=== PATIENT | male | born 1985 | race Caucasian/White ===

== ENCOUNTER → 2017-07-08 | Outpatient (CLI) | payer BC ==
--- NOTE | 2017-07-08 12:48 | DIAGNOSTIC IMAGING REPORT ---
L-SPINE MIN 4 VIEWS ROUTINE CLINICAL HISTORY: M54.5 Chronic lower back [id number] COMPARISON STUDY: No previous studies for comparison. FINDINGS: There are no acute fractures. There is a grade 1 spondylolisthesis of L5 on S1. There are bilateral L5 pars defects. IMPRESSION: 1. Bilateral L5 spondylolysis 2. Grade 1 spondylolisthesis of L5 on S1 3. No acute fractures Electronically signed by: Pranav Chauhan M.D. 07/08/2017 12:47 PM Dictated Date/Time: 07/08/2017 12:46 PM
== END ==
LOC: C.RAD 12:23
PROVIDERS: ATTEND Physician Assistant
DX: M43.16 Spondylolisthesis, lumbar region (principal)

== ENCOUNTER 2017-08-10 00:34 | Emergency (ER) | payer BC ==
[~2017-08-10] VITALS: Ht 175.3 cm; Wt 101.6 kg
[2017-08-10 00:37] VITALS: TEMP 36.8; Ht 175.3 cm; Wt 101.6 kg
[2017-08-10] MEDS ORDERED: PROPARACAINE HCL 0.5% OP SOLN 15 ML BTL OP STA (00:55)
[2017-08-10] MEDS ORDERED: CIPROFLOXACIN HCL 0.3% OP SOLN 2.5 ML BTL OP ONE (01:00)
[2017-08-10] MEDS ORDERED: NORCO 5/325MG HOME PACK PO ONE (02:00)
[2017-08-10 02:05] VITALS: BP 130/73; PULSE 74; O2SAT 95
--- NOTE | 2017-08-10 08:16 | EMERGENCY ROOM VISIT NOTE ---
ED Visit Note First contact with patient: 00:49 CHIEF COMPLAINT: Foreign body of the eye HISTORY OF PRESENT ILLNESS: This 31 year old male patient presents to the emergency department complaining of pain and foreign body sensation in the left eye. The patient states that he was working on a car last evening and may have had something blow into his eye. There has been a constant moderate pain and irritation, redness and tearing in the eye. The vision has no been decreased over all. The patient does no wear contacts. The patient rates the pain as 7/ 10. The patient has not had previous injuries to this eye. Tetanus shot is reportedly up to date. REVIEW OF SYSTEMS: A 6 system review of systems was completed with positives and pertinent negatives listed in the HPI. ALLERGIES: No known medication allergies MEDICATIONS: No chronic medication PMH: Otherwise healthy SOCIAL HISTORY: Employed and lives locally PHYSICAL EXAM: Vital Signs: Reviewed Nurse's notes, vital signs stable. Visual acuity 20/30 in the right and 20/40 in the left without correction. GENERAL: This is a white male, in no acute distress, but who is uncomfortable from the eye problem. Well-developed well-nourished. EYES: The pupils are equal round and reactive to light and accommodation. EOMs are full and without tenderness. There is clear discharge from the left eye which is injected. There is a small metallic foreign body visible on the cornea. There is no foreign body visible under the eyelid after lid eversion. The cornea was clear and no hyphema was seen. Fluorescein uptake was observed with ultraviolet light significant for a corneal abrasion only around the previous location of the foreign body. EMERGENCY DEPARTMENT COURSE: I examined the patient. Alcaine 2 drops were placed in the patient's left eye. A slit lamp exam was performed as above. Verbal consent was obtained to perform the procedure. The foreign body was removed using a tuberculin needle and cotton swab. Ciloxan two drops was placed in the patient's left eye. The patient was discharged home in good condition. Current/Historical Medications No Active Prescriptions or Reported Meds Allergies Coded Allergies: Molds and Smuts (Verified Allergy, Intermediate, runny, itchy eyes, ) Vital Signs Date Time Temp Pulse Resp B/P (MAP) Pulse Ox O2 Delivery O2 Flow Rate FiO2 08/10/17 02:05 74 15 130/73 95 08/10/17 00:37 36.8 71 18 107/61 97 Room Air Medications Administered Medications (Trade) Dose Ordered Sig/Philip Route Start Time Stop Time Status Last Admin Dose Admin Proparacaine HCl (Alcaine 0.5% Oph Soln) 2 drops NOW STAT OP 08/10/17 00:55 08/10/17 00:57 DC 08/10/17 01:00 2 DROPS Ciprofloxacin HCl (Ciprofloxacin 0.3% Op Soln) 2 drops NOW ONCE OP 08/10/17 01:00 08/10/17 01:01 DC 08/10/17 02:02 2 DROPS Acetaminophen/ Hydrocodone Bitart (Reliance 5/325mg Home Pack) 1 homepack UD ONCE PO 08/10/17 02:00 08/10/17 02:01 DC 08/10/17 02:02 1 HOMEPACK Departure Information Impression Primary Impression: Foreign body, eye Dispostion Home / Self-Care Condition GOOD Prescriptions No Active Prescriptions or Reported Meds Referrals No Doctor, Assigned (PCP) Forms HOME CARE DOCUMENTATION FORM, IMPORTANT VISIT INFORMATION Patient Instructions My [facility] Additional Instructions You were seen and evaluated today on an emergency basis only. This is not a substitute for, or an effort to provide, complete comprehensive medical care. It is not possible to recognize and treat all injuries or illnesses in a single emergency department visit. For this reason it is recommended that you followup with your primary care physician or eye doctor with any ongoing or persisting symptoms. Reliance (hydrocodone/acetaminophen) 5/325 mg (homepack) ONE tab by mouth every 6 hours as needed for worsening breakthrough pain. Do not drink or drive on Reliance. This medication will likely make you tired. Do not take Reliance and Tylenol at the same time as both contain acetaminophen. Reliance may cause constipation. You may wish to take an [id number] stool softener like Colace if this occurs. Use Ciloxan Eye Drops: Instill 1-2 drops into the conjunctival sac every 2 hours while awake for 2 days and 1-2 drops every 4 hours while awake for the next 5 days You are welcome to return to the emergency department anytime with new, worsening, or concerning symptoms.
== END 2017-08-10 02:07 | disposition home or self-care (01) ==
LOC: C.EDB 00:35
DX: T15.02XA Foreign body in cornea, left eye, initial encounter (principal); X58.XXXA Exposure to other specified factors, initial encounter; Y93.89 Activity, other specified; Z91.048 Other nonmedicinal substance allergy status